=== PATIENT | male | born 2000 | race African-American/Black ===

== ENCOUNTER 2023-05-22 02:40 | Outpatient (CLI) | payer OTHER, MEDICAID, SELFPAY | END 2023-05-22 02:41 | disposition home or self-care (01) | LOC: AMB 05-30 15:45 | PROVIDERS: Visit Provider Family Medicine | DX: S39.92XA Unspecified injury of lower back, initial encounter (principal); V40.1XXA Car passenger injured in collision with pedestrian or animal in nontraffic accident, initial encounter; Y92.410 Unspecified street and highway as the place of occurrence of the external cause | CPT/HCPCS: A0425; A0429 ==